=== PATIENT | female | born 1960 | race Caucasian/White ===

== ENCOUNTER 2017-04-13 08:55 | Observation (INO) | payer BC ==
[~2017-04-13] VITALS: Ht 162.6 cm; Wt 70.9 kg
[~2017-04-13 08:55] MED LIST: CITALOPRAM10 MG PO; SYNTHROID112 MCG PO
[2017-04-13] MEDS ORDERED: CELEXA40 M1 PO (09:12)
[2017-04-13] MEDS ORDERED: SYNTHROID125 MCG PO (09:13)
[2017-04-13 09:40] LABS: HEMOGLOBIN 13.4 g/dl (12.0-16.0); IMMATURE GRANULOCYTES 0.6 % (0.0-1.0); MEAN CELL VOLUME 98.3 fL CALC (80.0-100.0); MEAN CORPUSCULAR HGB 32.9 pG CALC (26.0-32.0); MEAN CORPUSCULAR HGB CONC 33.5 g/L CALC (32.0-36.0); NEUT# 3.83 thou/uL (2.00-7.15); RED BLOOD COUNT 4.07 mill/uL (4.20-5.60); RED CELL DISTRI WIDTH 13.2 % (11.5-15.5)
[2017-04-13 09:49] LABS: ALBUMIN 4.6 g/dL (3.2-5.0); ALKALINE PHOSPHATASE 69 u/l (38-126); AMYLASE 74 u/l (30-110); ANION GAP 15 (6-22 (CALC)); BILIRUBIN, TOTAL 0.6 mg/dL (0.0-1.4); BUN 25 mg/dL (7-17); BUN/CREATININE RATIO 26 (12-20 (CALC)); CALCIUM 9.7 mg/dL (8.4-10.2); CARBON DIOXIDE 24 mmol/l (22-30); CHLORIDE 106 mmol/l (95-108); GFR 57 ML/MIN (>=60 (CALC)); GFR FOR AFR.AMER. > 60 ML/MIN (>=60 (CALC)); GLUCOSE 92 mg/dL (65-105); POTASSIUM 4.3 mmol/l (3.5-5.1); SGOT/AST 27 u/l (14-36); SGPT/ALT 40 u/l (9-52); SODIUM 140 mmol/l (137-146); TOTAL PROTEIN 7.9 g/dL (6.3-8.2)
[2017-04-13 09:58] LABS: MYOGLOBIN 94 ng/mL (0 - 62)
[2017-04-13 10:11] LABS: URINE BILIRUBIN - DIPSTICK NEGATIVE (NEGATIVE); URINE BLOOD DIPSTICK NEGATIVE (NEGATIVE); URINE CLARITY CLEAR; URINE COLOR YELLOW; URINE GLUCOSE - DIPSTICK NEGATIVE (NEGATIVE); URINE KETONE NEGATIVE (NEGATIVE); URINE LEUK ESTERASE TRACE (NEGATIVE); URINE NITRITE - DIPSTICK NEGATIVE (Negative); URINE PROTEIN - DIPSTICK NEGATIVE (NEG-TRACE); URINE SPECIFIC GRAVITY <=1.005; URINE UROBILINOGEN - DIPSTICK 0.2 E.U./dL (0.2)
[2017-04-13] MEDS ORDERED: LASIX 20 MG TAB20 MG PO (10:30)
[2017-04-13] MEDS ORDERED: K-TAB20 MEQ (10:32)
[2017-04-13] MEDS ORDERED: ALLOPURINOL100 MG PO (10:32)
[2017-04-13] MEDS ORDERED: CALCIUM + D PO (10:35)
[2017-04-13 12:46] VITALS: BP 116/78
[2017-04-13] MEDS ORDERED: CIPRODEX1 ML OT (15:11)
[2017-04-13 15:45] VITALS: BP 125/82
[2017-04-13 16:19] LABS: CHOLESTEROL HDL RATIO 3.9 (<4.4 (CALC))
[2017-04-13 19:20] VITALS: BP 109/77
[2017-04-14 00:30] VITALS: BP 115/72
[2017-04-14 05:15] VITALS: BP 114/76
[2017-04-14 06:13] LABS: CHOLESTEROL HDL RATIO 3.7 (<4.4 (CALC))
[2017-04-14 07:30] VITALS: BP 126/78
== END 2017-04-14 13:00 | disposition home or self-care (01) | DRG 313 ==
LOC: ENPENDDIS → ED 08:55 → ED-I 09:33 → ED 09:33 → ED-I 10:15 → ED 10:33 → MS2 10:34
PROVIDERS: Emergency Medicine; Nurse Practitioner Family; ADMIT Internal Medicine; ATTEND Internal Medicine
DX: R07.89 Other chest pain (principal); E03.9 Hypothyroidism, unspecified; F41.8 Other specified anxiety disorders; Z88.6 Allergy status to analgesic agent; Z87.891 Personal history of nicotine dependence
CPT/HCPCS: G0378

== ENCOUNTER 2019-01-26 19:29 | Emergency (ER) | payer BC ==
[~2019-01-26] VITALS: Ht 162.6 cm; Wt 65.0 kg
[~2019-01-26 19:29] MED LIST changes: +ALLOPURINOL100 MG PO; +CALCIUM + D PO; +CELEXA40 M1 PO; +CIPRODEX1 ML OT; +K-TAB20 MEQ; +LASIX 20 MG TAB20 MG PO; +SYNTHROID125 MCG PO
[2019-01-26] MEDS ORDERED: SYNTHROID112 MCG PO (19:56)
[2019-01-26 20:16] LABS: HEMATOCRIT 43.3 % (37.0-47.0); HEMOGLOBIN 14.3 g/dl (12.0-16.0); IMMATURE GRANULOCYTES 0.4 % (0.0-5.0); MEAN CELL VOLUME 97.3 fL CALC (80.0-100.0); MEAN CORPUSCULAR HGB 32.1 pG CALC (26.0-32.0); NEUT# 4.75 thou/uL (2.00-7.15); RED BLOOD COUNT 4.45 mill/uL (4.20-5.60); RED CELL DISTRI WIDTH 13.1 % (11.5-15.5)
[2019-01-26 20:36] LABS: ACT PARTIAL THROMBO TIME 26.6 SECONDS (20.0-32.5); D-DIMER 0.25 mg/L (0.19-0.60); INTERNATIONAL NORMALIZED RATIO 0.9 RATIO (0.7-1.3); PROTHROMBIN TIME 9.5 SECONDS (9.0-12.5)
[2019-01-26 21:17] LABS: ALBUMIN 4.3 g/dL (3.2-5.0); ALKALINE PHOSPHATASE 80 u/l (38-126); AMYLASE 75 u/l (30-110); ANION GAP 12 (6-22 (CALC)); BUN 31 mg/dL (7-17); BUN/CREATININE RATIO 32 (12-20 (CALC)); CARBON DIOXIDE 25 mmol/l (22-30); CHLORIDE 106 mmol/l (95-108); GFR 57 ML/MIN (>=60 (CALC)); GFR FOR AFR.AMER. > 60 ML/MIN (>=60 (CALC)); LIPASE 86 u/l (23-300); POTASSIUM 3.7 mmol/l (3.5-5.1); SGOT/AST 31 u/l (14-36); SODIUM 140 mmol/l (137-146); TOTAL PROTEIN 7.4 g/dL (6.3-8.2)
[2019-01-26 21:20] LABS: BILIRUBIN, TOTAL 0.3 mg/dL (0.0-1.4)
[2019-01-26 21:29] LABS: MYOGLOBIN 124 ng/mL (0 - 62)
[2019-01-26] MEDS ORDERED: PROTONIX40 MG PO (21:55)
[2019-01-26 22:00] VITALS: BP 124/80
== END 2019-01-26 22:55 | disposition home or self-care (01) | DRG 313 ==
LOC: ED 19:29
PROVIDERS: Family Medicine
DX: R07.9 Chest pain, unspecified (principal); E03.9 Hypothyroidism, unspecified

== ENCOUNTER 2020-01-25 | Emergency (ER) | payer BC ==
[~2020-01-25] MED LIST changes: +PROTONIX40 MG PO
[2020-01-25] MEDS ORDERED: CLINDAMYCIN300 M1 PO (12:39)
[2020-01-25] MEDS ORDERED: DOXYCYC MONO100 M2 PO (13:42)
[2020-01-25] MEDS ORDERED: COLCHICINE0.6 M2 PO (13:43)
== END 2020-01-25 14:00 | disposition home or self-care (01) | DRG 603 ==
DX: L03.032 Cellulitis of left toe (principal); M10.072 Idiopathic gout, left ankle and foot; E03.9 Hypothyroidism, unspecified